=== PATIENT | female | born 1975 | race Caucasian/White ===

== ENCOUNTER 2022-11-09 20:50 | Emergency (ER) | payer MEDICAID, OTHER ==
[~2022-11-09] VITALS: Ht 165 cm; Wt 65.0 kg
[~2022-11-09 20:50] MED LIST: BCP
[2022-11-09] MEDS ORDERED: LORAZEPAM (21:03)
[2022-11-09] MEDS ORDERED: PROC10TA10 (21:03)
[2022-11-09] MEDS ORDERED: POTA10CA43 (21:03)
[2022-11-09] MEDS ORDERED: ONDA8TAB13 (21:03)
[2022-11-09] MEDS ORDERED: HYDR-3817 (21:03)
[2022-11-09] MEDS ORDERED: SCOPOLAMINE (21:03)
[2022-11-09] MEDS ORDERED: ONDANSETRON 4 MG/2 ML (SDV) Z0FRAN IVP STA (21:06)
--- NOTE | 2022-11-09 21:12 | ED General ---
General Chief Complaint: General Problems/Pain Stated Complaint: N/V,DEHYDRATION,ON CHEMO Nursing Triage Note: c/o n/v, dehydration on chemo for breast cancer. History of Present Illness Date Seen by Provider: Nov 09, 2022 Time Seen by Provider: 20:55 Initial Comments 47 year old female evaluated for N/V that started this evening. Last Zofran ODT was 4 hours ago but has not helped. She last ate sold food this AM. She has recurrent bouts of N/V and goes to various EDs for fluids, she has been in [place] and [place] over the last few weeks. She usually gets fluids and nausea medicine, then discharged to home. She has Scopalamine patch to right neck. She last had chemo 3 weeks ago. She was supposed to get Chemo last Wed but it was held due to her labs and N/V. They are planning to hold further Chemo and proceed with surgery. Timing/Duration: 12 Hours Severity: Moderate Modifying Factors: improves with Rest Associated Systoms: No Chest Pain, No Cough, No Fever/Chills; Loss of Appetite, Malaise, Nausea/Vomiting; No Shortness of Air; Weakness Allergies and Home Medications Allergies Coded Allergies: No Known Drug Allergies (Unverified , 09/10/13) Patient Home Medication List Home Medication List Reviewed: Yes Hydrocodone/Acetaminophen (Hydrocodone-Acetamin 7.5-325) 7.5 Mg-325 Mg Tablet, (Reported) Entered as Reported by: CORY ALBARRAN on 11/09/222102 Last Action: New Order Ondansetron (Ondansetron Odt) 8 Mg Tab.rapdis, (Reported) Entered as Reported by: CORY ALBARRAN on 11/09/222102 Last Action: New Order Potassium Chloride (Potassium Chloride) 10 Meq Capsule.er, (Reported) Entered as Reported by: CORY ALBARRAN on 11/09/222102 Last Action: New Order Prochlorperazine Maleate (Prochlorperazine Maleate) 10 Mg Tablet, (Reported) Entered as Reported by: CORY ALBARRAN on 11/09/222102 Last Action: New Order [Bcp] , (Reported) Entered as Reported by: TIESHA BEAN on 09/10/13 0433 [Lorazepam] , (Reported) Entered as Reported by: CORY ALBARRAN on 11/09/222102 Last Action: New Order [Scopolamine] , (Reported) Entered as Reported by: CORY ALBARRAN on 11/09/222102 Last Action: New Order Review of Systems Review of Systems Constitutional: see HPI; No fever; malaise, weakness EENTM: see HPI, no symptoms reported Respiratory: no symptoms reported, see HPI Cardiovascular: no symptoms reported, see HPI Gastrointestinal: see HPI; No constipation, No diarrhea, No jaundice; loss of appetite, nausea, vomiting Musculoskeletal: no symptoms reported, see HPI All Other Systems Reviewed Negative Unless Noted: Yes Past Uahuyvl-Ydeaab-Mudeut Hx Patient Social History Tobacco Use?: No Substance use?: No Alcohol Use?: No Pt feels they are or have been: No Past Medical History Surgery/Hospitalization HX: tubal, port, chronic back pain, breast cancer/chemo Chronic Back Pain Family Medical History Reviewed Nursing Family Hx Physical Exam Vital Signs Vital Signs - First Documented 11/09/22 20:57 Temp 36.5 Pulse 133 Resp 16 B/P (MAP) 109/78 (88) Pulse Ox 95 O2 Delivery Room Air Capillary Refill : Less Than 3 Seconds Height, Weight, BMI Height: '" Weight: 155lbs. oz. [id number]; 23.00 BMI Method: General Appearance: Mild Distress HEENT: PERRL/EOMI, TMs Normal, Normal ENT Inspection, Pharynx Normal Neck: Full Range of Motion, Normal Inspection, Non Tender, Supple Respiratory: Chest Non Tender, Lungs Clear, Normal Breath Sounds Cardiovascular: Regular Rate, Rhythm, No Murmur Gastrointestinal: Normal Bowel Sounds, Non Tender, Soft Back: Normal Inspection, No CVA Tenderness, No Vertebral Tenderness Extremity: Normal Capillary Refill, Normal Inspection, Normal Range of Motion, Non Tender, No Pedal Edema Neurologic/Psychiatric: Alert, Oriented x3, No Motor/Sensory Deficits, Normal Mood/Affect Skin: Normal Color, Warm/Dry Progress/Results/Core Measures Suspected Sepsis Recent Fever Within 48 Hours: No Infection Criteria Present: None New/Unexplained Altered Menta: No Within 3hrs of presentation: Admin fluids SIRS Temperature: Pulse: 133 Respiratory Rate: 16 Laboratory Tests 11/09/22 21:20: White Blood Count 6.5 Blood Pressure 109 /78 Mean: 88 Laboratory Tests 11/09/22 21:20: Creatinine 0.73, Platelet Count 445H, Total Bilirubin 0.8 Results/Orders Lab Results Laboratory Tests Test 11/09/22 21:19 11/09/22 21:20 Range/Units Urine Color YELLOW Urine Clarity CLOUDY Urine pH 6.0 5-9 Urine Specific [place] 1.025 H 1.016-1.022 Urine Protein 1+ H NEGATIVE Urine Glucose (UA) NEGATIVE NEGATIVE Urine Ketones TRACE H NEGATIVE Urine Nitrite NEGATIVE NEGATIVE Urine Bilirubin NEGATIVE NEGATIVE Urine Urobilinogen 1.0 < = 1.0 MG/DL Urine Leukocyte Esterase 1+ H NEGATIVE Urine RBC (Auto) NEGATIVE NEGATIVE Urine RBC NONE /HPF Urine WBC 5-10 H /HPF Urine Squamous Epithelial Cells 0-2 /HPF Urine Renal Epithelial Cells NONE /HPF Urine Crystals NONE /LPF Urine Bacteria NEGATIVE /HPF Urine Casts NONE /LPF Urine Mucus LARGE H /LPF Urine Culture Indicated YES White Blood Count 6.5 4.3-11.0 10^3/uL Red Blood Count 3.59 L 3.80-5.11 10^6/uL Hemoglobin 11.4 L 11.5-16.0 g/dL Hematocrit 36 35-52 % Mean Corpuscular Volume 99 80-99 fL Mean Corpuscular Hemoglobin 32 25-34 pg Mean Corpuscular Hemoglobin Concent 32 32-36 g/dL Red Cell Distribution Width 18.5 H 10.0-14.5 % Platelet Count 445 H 130-400 10^3/uL Mean Platelet Volume 9.1 9.0-12.2 fL Immature Granulocyte % (Auto) 0 % Neutrophils (%) (Auto) 48 42-75 % Lymphocytes (%) (Auto) 39 12-44 % Monocytes (%) (Auto) 12 0-12 % Eosinophils (%) (Auto) 0 0-10 % Basophils (%) (Auto) 1 0-10 % Neutrophils # (Auto) 3.1 1.8-7.8 10^3/uL Lymphocytes # (Auto) 2.6 1.0-4.0 10^3/uL Monocytes # (Auto) 0.8 0.0-1.0 10^3/uL Eosinophils # (Auto) 0.0 0.0-0.3 10^3/uL Basophils # (Auto) 0.1 0.0-0.1 10^3/uL Immature Granulocyte # (Auto) 0.0 0.0-0.1 10^3/uL Sodium Level 144 135-145 MMOL/L Potassium Level 3.3 L 3.6-5.0 MMOL/L Chloride Level 106 98-107 MMOL/L Carbon Dioxide Level 26 21-32 MMOL/L Anion Gap 12 5-14 MMOL/L Blood Urea Nitrogen 9 7-18 MG/DL Creatinine 0.73 0.60-1.30 MG/DL Estimat Glomerular Filtration Rate 102 BUN/Creatinine Ratio 12 Glucose Level 108 H 70-105 MG/DL Calcium Level 9.2 8.5-10.1 MG/DL Corrected Calcium 9.3 8.5-10.1 MG/DL Total Bilirubin 0.8 0.1-1.0 MG/DL Aspartate Amino Transf (AST/SGOT) 22 5-34 U/L Alanine Aminotransferase (ALT/SGPT) 25 0-55 U/L Alkaline Phosphatase 49 40-136 U/L C-Reactive Protein High Sensitivity 0.05 0.00-0.50 MG/DL Total Protein 6.4 6.4-8.2 GM/DL Albumin 3.9 3.2-4.5 GM/DL My Orders Orders - RAMILA STAPLETON Cbc With Automated Diff (11/09/22 21:06) Comprehensive Metabolic Panel (11/09/22 21:06) Hs C Reactive Protein (11/09/22 21:06) Ua Culture If Indicated (11/09/22 21:06) Ed Iv/Invasive Line Start (11/09/22 21:06) Ns Iv 1000 Ml (Sodium Chloride 0.9%) (11/09/22 21:15) Ondansetron Injection (Zofran Injectio (11/09/22 21:06) Urine Culture (11/09/22 21:19) Potassium Cl 10meq/50ml Ivpb (Kcl 10 Meq (11/09/22 22:15) Ed Iv/Invasive Line Start (11/09/22 22:07) Ns Iv 1000 Ml (Sodium Chloride 0.9%) (11/09/22 22:15) Medications Given in ED Current Medications Medications Dose Ordered Sig/Fito Route Start Time Stop Time Status Last Admin Dose Admin Potassium Chloride 50 ml @ 50 mls/hr ONCE ONCE IV 11/09/22 22:15 11/09/22 23:14 11/09/22 22:16 50 MLS/HR Vital Signs/I&O 1/2/23 20:57 Temp 36.5 Pulse 133 Resp 16 B/P (MAP) 109/78 (88) Pulse Ox 95 O2 Delivery Room Air Capillary Refill : Less Than 3 Seconds Blood Pressure Mean: 88 Progress Note : Time: 20:55 Progress Note patient assessed, initial HR 130 after walking to exam room. Once settled on exam bed, HR 100-108. Will check labs and give NS 1 L per IV; Zofran 8 mg IV. 2144 nausea improving. IV Infusing. Will give K+ 10 mEq IV for K+ 3.3 2214 taking sips of sprite. Will give 2nd Liter of NS IV. Discharge instructions and return precautions reviewed. Departure Impression Primary Impression: Chemotherapy induced nausea and vomiting Additional Impressions: Dehydration Hypokalemia Disposition: HOME, SELF-CARE Condition: Improved Departure-Patient Inst. Decision time for Depature: 22:15 Referrals: NO,LOCAL PHYSICIAN (PCP/Family) Primary Care Physician Patient Instructions: Nausea and Vomiting, Adult (DC) Add. Discharge Instructions: Follow up with your Oncologist for more aggressive options in treating your nausea and vomiting to avoid repeat visits to Emergency Depts. Continue to use the Scopalamine, Zofran, Phenergan or Compazine. Clear liquid diet for the next 8-12 hours, then bland diet as tolerated. Push fluids (pedialyte, gatorade, sprite, etc) anything you are able to tolerate to stay hydrated. We are culturing your urine, it is likely a skin contaminant, but if an antibiotic is necessary, we will contact you in 48 hours. Return to Emergency dept for new, urgent healthcare needs. All discharge instructions reviewed with patient and/or family. Voiced understanding. Scripts Scopolamine (Transderm-Scop) 1 Mg/3 Day Patch.td72 1 EACH TD Q72H, #15 PATCH 0 Refills Prov: RAMILA STAPLETON 11/09/22 RAMILA STAPLETON Nov 09, 2022 21:12
[2022-11-09] MEDS ORDERED: NS IV 1000 ML 1,000 ML IV SCH ×2 (21:15→22:15)
[2022-11-09 21:25] LABS: BILIRUBIN,URINE NEGATIVE (NEGATIVE); CLARITY,URINE CLOUDY; COLOR,URINE YELLOW; GLUCOSE, URINE (UA) NEGATIVE (NEGATIVE); KETONES,URINE TRACE (NEGATIVE); LEUKOCYTE ESTERASE ,URINE 1+ (NEGATIVE); NITRITE,URINE NEGATIVE (NEGATIVE); PROTEIN,URINE 1+ (NEGATIVE)
[2022-11-09 21:31] LABS: BACTERIA,URINE NEGATIVE /HPF; SQUAMOUS EPITHELIAL CELL,UR 0-2 /HPF
[2022-11-09 21:35] LABS: BASOPHILS # (AUTO) 0.1 10^3/uL (0.0-0.1); BASOPHILS % (AUTO) 1 % (0-10); EOSINOPHILS % (AUTO) 0 % (0-10); HEMATOCRIT 36 % (35-52); HEMOGLOBIN 11.4 g/dL (11.5-16.0); LYMPHOCYTES # (AUTO) 2.6 10^3/uL (1.0-4.0); LYMPHOCYTES % (AUTO) 39 % (12-44); MEAN CORPUSCULAR HEMOGLOBIN 32 pg (25-34); MEAN CORPUSCULAR HGB CONC 32 g/dL (32-36); MEAN CORPUSCULAR VOLUME 99 fL (80-99); MEAN PLATELET VOLUME 9.1 fL (9.0-12.2); MONOCYTES # (AUTO) 0.8 10^3/uL (0.0-1.0); MONOCYTES % (AUTO) 12 % (0-12); NEUTROPHILS # (AUTO) 3.1 10^3/uL (1.8-7.8); NEUTROPHILS % (AUTO) 48 % (42-75); PLATELET COUNT 445 10^3/uL (130-400); WHITE BLOOD COUNT 6.5 10^3/uL (4.3-11.0)
[2022-11-09 21:46] LABS: ALBUMIN 3.9 GM/DL (3.2-4.5); POTASSIUM 3.3 MMOL/L (3.6-5.0)
[2022-11-09 21:47] LABS: CALCIUM 9.2 MG/DL (8.5-10.1)
[2022-11-09 21:48] LABS: TOTAL PROTEIN 6.4 GM/DL (6.4-8.2)
[2022-11-09 21:50] LABS: BILIRUBIN,TOTAL 0.8 MG/DL (0.1-1.0)
[2022-11-09 21:52] LABS: CREATININE SERUM 0.73 MG/DL (0.60-1.30)
[2022-11-09] MEDS ORDERED: POTASSIUM CL 10MEQ/50ML IVPB 50 ML IV ONE (22:15)
[2022-11-09] MEDS ORDERED: SCOP1PAT10 TD (22:26)
[2022-11-09] MEDS ORDERED: PROMETHAZINE INJ 25 MG/ML (PHENERGAN) AMP IVP STA (22:49)
[2022-11-09 23:57] VITALS: BP 97/65
== END 2022-11-09 23:58 | disposition home or self-care (01) ==
LOC: EDUNIT# 20:50 → ER 20:54
DX: R11.2 Nausea with vomiting, unspecified (principal); T44.3X5A Adverse effect of other parasympatholytics [anticholinergics and antimuscarinics] and spasmolytics, initial encounter; E86.0 Dehydration; E87.6 Hypokalemia
CPT/HCPCS: 36415; 80053; 81000; 85025; 86141; 87088; 99282